=== PATIENT | female | born 1960 | race Caucasian/White ===

== ENCOUNTER 2017-04-26 01:39 | Inpatient (IN) | payer OTHER ==
[~2017-04-26] VITALS: Ht 160 cm; Wt 71.2 kg
[~2017-04-26 01:39] MED LIST: BYSTOLIC2.5 M1 PO; COLACE100 M1 PO; CRESTOR10 M1 PO; CYMBALTA20 M1 PO
--- NOTE | 2017-04-26 11:42 | Operative Report ---
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, myelopathy, OPLL Post-Operative Diagnosis: same Estimated Blood Loss: less than 50ml Surgeon/Pay Clerk: Evans LAY,Asif Avitia Anesthesia: general endotracheal tube Monitors: neurophysiologic monitoring IV Fluids: 1500cc Implants: depuy bengal cage,vectra plate Urine Output: 700cc Drains: med MAUREEN Specimens: C4/5, C5/6 disc material Complications: none Condition: stable Operative Indication: 57yo women with pain and parasthesias and high grade C5/6 stenosis from OPLL vs calcified disc with significant spinal cord compression and advanced DDD at C4/5 with right NFN and a failed course of conservative care now presents for operative decompression and instrumented fusion. Operative/Procedure Note Note: Patient was taking to the operating room. After appropriate difficult time out and patient identification, neurophysiologic monitoring leads were placed and baseline recordings were obtained. Patient underwent the smooth induction of general endotracheal anesthesia. A Nebwerry catheter was sterilely inserted. Patient was given 1 g of IV vancomycin preoperative prophylaxis. DVT prophylaxis was utilized throughout the case. With all tubes and lines secured, the patient was positioned supine on the operating table with a bump under the shoulders and the neck slightly extended on a donut. The shoulders were retracted downward with tape. Following positioning monitoring was stable. Left ventral neck was widely prepped and draped in the usual sterile fashion using povidone iodine solution. The C-arm fluoroscope was sterilely draped into the field and a linear transverse left anterior cervical incision was marked overlying the C5 vertebral body in a pre-existing neck fold and infiltrated with local anesthetic. Skin incision was made with a 10 blade knife. Dissection was carried down through the subcutaneous tissue with the Bovie to the platysma muscle which was elevated undermined and divided. Subplatysmal planes were created rostrally and caudally. The medial aspect of the sternocleidomastoid muscle was identified. The overlying fascia was incised and a combination of digital and blunt dissection was used down to the prevertebral fascia. Carotid artery pulse was palpated reflected laterally under hand-held retractor. The prevertebral fascia was incised and reflected with a peanut. Disc spaces were identified. A small gauge spinal needle was placed superficially in the presumed C4 5 disc and intraoperative lateral cervical x-ray was obtained and confirmed this to be the level of C4 5. With the correct levels verified, we marked the disc spaces of C4 5 and C5 6. On his coli muscles were reflected and self-retaining retractors were placed. Annulotomy's were made with a 15 blade knife and superficial discectomies performed with small straight and angled curettes and pituitary rongeurs. [place] pins were placed into the C4 and C6 vertebral bodies in the disc spaces are gently distracted. Further discectomy was then completed down to the posterior longitudinal ligament. At C5 6, there was heavy calcified disc or focal OPLL could be palpated beneath the C5 vertebral body. We elected to perform a corpectomy in order to get adequate decompression of the thecal sac. Using a combination of the bone scalpel and Leksell rongeur, C5 corpectomy was completed the bone was saved on the back table. There was significant focal OPLL behind the inferior half of the C5 vertebral body with severe impingement of the thecal sac. This was partially adherent to the dura. Working carefully, the calcified ligament was dissected free from the underlying dura with small angled curettes and resected in a piecemeal fashion using 2 mm Kerrison punch until all of the dural compression was relieved. We further undercut to the endplates of C4 and C6 and a combination of angled curettes and Kerrison rongeurs until an excellent and thorough decompression of the dural sac was achieved and it was nicely reexpanded throughout the corpectomy. The endplates of C4 and C6 were repaired F arthrodesis and all the cartilaginous endplates were removed. Monitoring was stable during the decompression. Meticulous hemostasis is achieved prior to arthrodesis. The wound was copiously irrigated with sterile normal saline. A 20 mm Depuy Bengal cage was selected and filled with morcellated autograft from the corpectomy. Cage was gently tamped into position between C4 and C6 and countersunk by approximately 1 mm and its position confirmed visually noted to be excellent. The [place] retractor was then released compressing the graft. [place] pins were removed. Bone bleeding was easily controlled with bone wax. We'll x-ray was obtained confirming excellent position of the cage. Proceeded with placement of the anterior instrumentation. A 26 mm Vectra titanium plate was selected and provisionally placed from C4 to C6 with a plate-holding pin and the plate position was confirmed fluoroscopically noted to be excellent. The plate was then affixed to the C4 and C6 vertebral bodies with a series of 4 16 mm screws. Each screw was placed by piercing the bone with an awl and placing a self drilling self-tapping screw. Final AP and lateral x-rays were obtained showed excellent position of the instrumentation. The screws were finally tightened applying the locking mechanism at all 4 locations. The wound was irrigated. We inspected the wound and meticulous hemostasis is achieved prior to closure. A medium MAUREEN drain was placed into the wound and secured to the skin with a 3-0 nylon suture. The skin was closed in layers. The platysma was closed with interrupted 3-0 Vicryl suture. The subcutaneous tissue was closed with interrupted 3-0 Vicryl suture and the skin was closed with a running 4-0 Vicryl subcuticular stitch. The was cleaned and dried. Steri-Strips and a sterile occlusive dressing was placed. The patient was placed in a soft cervical collar. She was awakened, extubated, and taken to PACU in stable condition. She was noted to be moving all 4 extremities at the completion the case. All sponge, needle, and instrument counts were correct at the completion of procedure 3. Neurophysiologic monitoring was stable throughout the case. Findings: Focal OPLL behind the C5 vertebral body associated with severe dural sac compression partially adherent to the underlying dura Discharge Disposition: PACU
--- NOTE | 2017-04-26 11:46 | Operative Report ---
Operative/Inv Procedure Report Surgery Date: 04/26/17 Name of Procedure: C5 corpectomy, C4 to 6 fusion , anterior instrumentation, placement of intervertebral biomechanical device, use autograft use of allograft use of fluoroscopic guidance Pre-Operative Diagnosis: Cervical spondylitic myelopathy Post-Operative Diagnosis: Same Estimated Blood Loss: less than 50ml Surgeon/Radiological Health Specialist: Asif Benitez md, Evans LAY,Mariela Cárdenas Anesthesia: general endotracheal tube Operative/Procedure Note Note: After the successful administration of general endotracheal anesthesia all lines tubes and monitors were placed by anesthesia team the patient was positioned supine with the head gently extended on shoulder rolls placed transversely across her shoulders we used the fluoroscope to plan the skin incision left anterior neck in a crease, over the C5 vertebral body. The patient was then prepped and draped in usual standard fashion #15 blade was used to incise the left anterior neck this was deepened to the platysma with Bovie cautery and sharp dissection was carried down medial to the carotid sheath lateral to the tracheo and the esophagus. Retracted the trachea and esophagus medially and over the longus coli bilaterally placed a bayoneted spinal needle in the C4 5 disc space to confirm level with the fluoroscope. We then entered the disc space with a #11 blade performed superficial discectomy using pituitary and curettes. We placed Alsen pins the bodies of C3 4 and C6 provided gentle in- line distraction we then deepened the discectomies down to the postanesthetic ridges we used the bone scalpel to make cuts laterally and the C5 vertebral body and used Leksell rongeurs to remove the superficial after dividing the bone was saved for morselized autograft. We then deepened the cuts with the bone scalpel and removed the remainder of the C5 vertebral body, it was teased off the dura with a upgoing curette and Kerrison punch were used to ream move the and Tate bone the remainder the disc space provide generous foraminotomies bilaterally. Motors and sensors were stable thought decompression, after satisfied with the bony ligament decompression we used calipers to trial the corpectomy size a 20 mm parallel cage was prepacked morselized autograft and tamped into place and fluoroscopic guidance. We secured in place a 26 mm plate with 16 mm screws. Motors and sensors were stable the plate was locked down the integrated locking mechanism. The wound was then irrigated through separate stab incision over 7 MAUREEN drain was left the mediolateral retractors were moved meticulous hemostasis obtained the Alsen pin holes waxed with bone wax and the wound was closed in layers using 2-0 Vicryl for the platysma and deep dermis and skin was closed with subcuticular 4.0. A dry sterile dressing was applied patient to recovery in stable condition. At the end the case all needle counts sponge and instruments were correct.
[2017-04-26 14:00] VITALS: BP 120/80
--- NOTE | 2017-04-26 16:22 | PN- Neurosurgical ---
Subjective Subjective: Patient reports incisional discomfort and states her pain is well controlled. She states she only want to take Tylenol for her pain. She reports voiding and ambulated to the bathroom without difficulty. She denies any numbness or tingling, chest pain, shortness of breath or trouble breathing. Objective Vital Signs and I&Os Vital Signs Date Time Temp Pulse Resp B/P B/P Pulse O2 O2 Flow FiO2 Mean Ox Delivery Rate 04/26 1400 97.8 98 20 120/80 95 Intake & Output 04/26 1600 04/26 0804/26 0000 04/25 1600 04/25 0804/25 0000 Intake Total Output Total 400 Balance -400 Output, Urine 400 Patient 157 lb 155 lb Weight Weight Standing Scale Measurement Method Physical Exam: Gen: Awake and alert in bed accompained by her family in NAD HEENT: Soft collar in place, anterior dressing c/d/i with no surrounding swelling, hematoma or drainage noted. MAUREEN with serosanguineous drainage noted. Cardiac: S1S2 noted Lungs: CTAB Abd: Soft, nondistended, nontender Ext: moves all extremities, sensation and motor intact, no edema or calf tenderness B/L Current Medications: Current Medications Sig/Bobby Start time Last Medication Dose Route Stop Time Status Admin Acetaminophen 650 MG Q4P PRN 04/26 1345 AC PO Acetaminophen 1,000 MG .STK-MED ONE 04/26 08 DC IV 04/26 08 Atorvastatin Calcium 40 MG 1700 04/26 1700 AC PO Diazepam 5 MG Q8P PRN 04/26 1400 AC PO Docusate Sodium 100 MG TID 04/26 1600 AC PO Duloxetine HCl 20 MG DAILY 04/27 1000 AC PO Fentanyl Citrate 250 MCG .STK-MED ONE 04/26 0804 DC IM 04/26 08 Heparin Sodium 5,000 UNIT Q8 04/27 0600 AC (Porcine) SC Hydromorphone HCl 2 MG Q4-6 PRN PRN 04/26 1515 AC PO Midazolam HCl 2 MG .STK-MED ONE 04/26 08 DC IM 04/26 08 Nebivolol 2.5 MG DAILY 04/27 1000 AC PO Ondansetron HCl 4 MG Q6P PRN 04/26 1400 AC IV Prochlorperazine 5 MG Q6P PRN 04/26 1630 AC PO Remifentanil HCl 6 MG .STK-MED ONE 04/26 0805 DC IV 04/26 0806 Senna 374 MG QPM PRN 04/26 1345 AC PO Sodium Chloride 1,000 ML Q12H 04/26 1345 AC IV 04/27 1344 Vancomycin HCl 1,000 MG Q12H 04/26 2030 AC Dextrose/Water 250 ML IV 04/26 2129 Vancomycin HCl 1,000 MG Q12H 04/26 0000 NR Sodium Chloride 250 ML IV 04/26 2359 Results Last 48 Hours of Labs: Laboratory Tests 04/26 0715 Urines Urine Test NEGATIVE Assessment/Plan Assessment/Plan 57 F POD 0 s/p ACDF of C4-5, C5-6 with corpectomy of C5 and MAUREEN drain x1 secondary to C4-5, C5-6 stenosis, myelopathy, OPLL Advance diet as tolerated Cont IVF Cont postop abx - vanco x2 Cont pain regimen - oral tylenol and dilaudid MAUREEN to bulb suction Keep soft collar in place Home meds on board Encourage IS, ambulation DVT ppx tomorrow am, alps in place Core Measures Venous Thromboembolism VTE Risk Factors Surgery No Mechanical VTE Prophylaxis d/t N/A MechProphylax Ordered No VTE Pharm Prophylaxis d/t NA PharmProphylax ordered
[2017-04-26 18:00] VITALS: BP 128/80
[2017-04-26 22:00] VITALS: BP 120/70
[2017-04-27 02:00] VITALS: BP 130/72
[2017-04-27 06:15] VITALS: BP 134/76
--- NOTE | 2017-04-27 07:24 | PN- Neurosurgical ---
Subjective Subjective: Pt doing well. Was OOB, koko some po, voiding on own. pain minimal. mild nausea after zofran this am. Objective Vital Signs and I&Os Vital Signs Date Time Temp Pulse Resp B/P B/P Pulse O2 O2 Flow FiO2 Mean Ox Delivery Rate 04/27 0615 97.8 80 20 134/76 96 Room Air 04/27 0200 97.9 75 18 130/72 96 Room Air 04/26 2200 97.8 86 20 120/70 96 Room Air 04/26 1800 98.0 90 20 128/80 96 Room Air 04/26 1400 97.8 98 20 120/80 95 Intake & Output 04/27 0800 04/27 0000 04/26 1600 04/26 0800 04/26 0000 04/25 1600 Intake Total 800 780 Output Total 410 40 400 Balance 390 740 -400 Intake, IV 560 640 Intake, Oral 240 140 Output, 10 40 Drainage Output, Urine 400 400 Patient 71.214 kg 70.307 kg Weight Weight Standing Scale Measurement Method Physical Exam: Af, VSS awake and alert voice clear, no hoarseness swallow intact incision is c,d,i flat normal motor and sensory bilat UE, LE ambulating voiding on own HV with 10cc last shift serosanguinous Current Medications: Current Medications Sig/Bobby Start time Last Medication Dose Route Stop Time Status Admin Acetaminophen 1,000 MG Q6P PRN 04/26 1715 AC 04/27 N/A 1 UNIT IV 0532 Acetaminophen 650 MG Q4P PRN 04/26 1345 AC PO Acetaminophen 1,000 MG .STK-MED ONE 04/26 08 DC IV 04/26 0806 Atorvastatin Calcium 40 MG 1700 04/26 1700 AC PO Diazepam 5 MG Q8P PRN 04/26 1400 AC PO Docusate Sodium 100 MG TID 04/26 1600 AC PO Duloxetine HCl 20 MG DAILY 04/27 1000 AC PO Fentanyl Citrate 250 MCG .STK-MED ONE 04/26 0804 DC IM 04/26 0805 Heparin Sodium 5,000 UNIT Q8 04/27 0600 AC (Porcine) SC Hydromorphone HCl 2 MG Q4-6 PRN PRN 04/26 1515 AC PO Hydromorphone HCl 2 MG .STK-MED ONE 04/26 1215 DC IM 04/26 1216 Midazolam HCl 2 MG .STK-MED ONE 04/26 0805 DC IM 04/26 0806 Nebivolol 2.5 MG DAILY 04/27 1000 AC PO Ondansetron HCl 4 MG Q6P PRN 04/26 1400 AC 04/27 IV 0530 Prochlorperazine 10 MG Q6-PRN PRN 04/26 1715 AC IV Prochlorperazine 5 MG Q6P PRN 04/26 1630 DC PO Remifentanil HCl 6 MG .STK-MED ONE 04/26 0805 DC IV 04/26 0806 Senna 374 MG QPM PRN 04/26 1345 AC PO Sodium Chloride 1,000 ML Q12H 04/26 1345 AC 04/27 IV 04/27 1344 0357 Vancomycin HCl 1,000 MG Q12H 04/26 2030 DC 04/26 Dextrose/Water 250 ML IV 04/26 2129 2059 Vancomycin HCl 1,000 MG Q12H 04/26 0000 DC Sodium Chloride 250 ML IV 04/26 2359 Results Last 48 Hours of Labs: Laboratory Tests 04/26 0715 Urines Urine Test NEGATIVE Assessment/Plan Assessment/Plan Pt POD1 s/p C5 corpectomy, C4/5, C5/6 discectomies with C4-6 anterior fusion and doing well. Plan: -OOB this am, breakfast -if drain output remain min next several hours, ok to dc. 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
--- NOTE | 2017-04-27 09:07 | RADIOLOGY REPORT ---
EXAMINATION: XR CERVICAL SPINE CLINICAL INFORMATION: ACD fusion C4-C5 and C5-C6. COMPARISON: CT cervical spine 03/30/2017. TECHNIQUE: 3 intraoperative films are submitted for interpretation in the lateral position. 0.3 minutes of fluoroscopy time was utilized. FINDINGS: Initial film demonstrates no intervention. There is disc space narrowing at C4-C5 and C5-C6. The 2 additional films demonstrate fusion from C4 through C6 with disc spacers at these levels. IMPRESSION: Intraoperative films demonstrate mechanical fusion from C4 through C6.
[2017-04-27 10:00] VITALS: BP 120/80
[2017-04-27] MEDS ORDERED: ACETAMINOPHEN500 M4 PO (14:03)
--- NOTE | 2017-04-27 14:07 | Patient Discharge Instructions ---
Discharge Instructions General Discharge Information You were seen/treated for: Neck pain You had these procedures: acdf c4-5, c5-6 Watch for these problems: Increasing pain depsite the use of pain medication Increasing redness, warmth or swelling Drainage of any type from incision Inability to swallow, difficulty breathing, difficulty speaking Persistent nausea or vomitting Fever greater than 101.5 degrees Do not soak the wound: Yes No bath, but you may shower: Yes Other wound care: Keep wound clean and dry. Protect while in shower. If wet, dry immediately with clean towel. Collar at all times as indicated by Dr. Krueger Diet Continue normal diet: Yes Recommended Diet: Regular Activity Full Activity/No Limits: No Activity Self Limited: Yes Pounds, do NOT lift more than: 5 Activity Limited to: Weight bear as tolerated Other activity limits: Collar at all times unless otherwise indicated by Dr. Krueger Acute Coronary Syndrome Inclusion Criteria At DC or during hospital stay patient has or had the following: ACS DIAGNOSIS No Discharge Core Measures Meds if any: Prescribed or Continued at Discharge Meds if any: NOT Prescribed or Continued at Discharge Congestive Heart Failure Inclusion Criteria At DC or during hospital stay patient has or had the following: CHF DIAGNOSIS No Discharge Core Measures Meds if any: Prescribed or Continued at Discharge Meds if any: NOT Prescribed or Continued at Discharge Cerebrovascular accident Inclusion Criteria At DC or during hospital stay patient has or had the following: CVA/TIA Diagnosis No Discharge Core Measures Meds if any: Prescribed or Continued at Discharge Meds if any: NOT Prescribed or Continued at Discharge Venous thromboembolism Inclusion Criteria VTE Diagnosis No VTE Type NONE VTE Confirmed by (Test) NONE Discharge Core Measures - Per Current guidelines, there needs to be overlap - treatment for the first 5 days of Warfarin therapy. - If discharged on Warfarin prior to 5 days of - overlap therapy, the patient will need to be - assessed for post discharge needs including - *Post discharge parental anticoagulation - *Warfarin and/or parental anticoagulation education - *Follow up date to check INR post discharge At least 5 days overlap therapy as Inpatient No Meds if any: Prescribed or Continued at Discharge Note: Overlap Therapy is Warfarin and Anticoagulant Meds if any: NOT Prescribed or Continued at Discharge
--- NOTE | 2017-04-27 14:12 | Surgical Discharge Summary ---
Visit Information Visit Dates Admission Date: 04/26/17 History of Present Illness Chief Complaint: Neck pain Medical History Blood Transfusion Hx: No Cardiovascular: DISRYTHMIAS History of MRSA: No History of VRE: No History of CDIFF: No Isolation History: Standard Influenza Vaccine: 02/23/17 Surgical History Pertinent Surgical History: tubal ligation, RECTAL FISTULA Psychosocial History Where Do You Live? Home Who Do You Live With? Spouse What is Your Primary Language? Mohawk Review of Systems: See H&P Hospital Course Course Attending Physician: Evans LAY,Mariela Cárdenas Primary Care Physician: Jeannie Joseph MD Hospital Course: Nayely was admitted to the hospital for an elective acdf c4-6. She tolerated the procedure well and was transferred to a general surgical post op floor. There her diet was advanced and tolerated. She displayed no neurological deficits and was able to speak and swallow without difficulty. Her everette hallman drain was discontinued on the first post operative day. At the time of her hospital discharge, her vital signs were stable and within normal limits, her pain was under control and her neurovascular status was intact. She was deemed appropriate for discharge. Allergies: Coded Allergies: NSAIDS (Non-Steroidal Anti-Inflamma (IBS 04/25/17) meperidine (From DEMEROL) (ANXIOUS 04/25/17) morphine (ANAPHYLAXIS 04/25/17) omeprazole (PAIN 04/25/17) penicillin G (UNKNOWN 04/25/17) Disposition Summary Disposition Principal Diagnosis: Cervical spinal stenosis Additional Diagnosis: None Discharge Disposition: home or self care Discharge Instructions General Discharge Information Code Status: Full Code Patient's Diet: Regular, advance as tolerated Patient's Activity: WBAT, no lifting greater than 5 lbs, collar at all times Follow-Up Instructions/Appts: Follow up with Dr. Krueger in 1-2 weeks from date of surgery Medications at Discharge Discharge Medications: Continue taking these medications: Docusate Sodium (Colace) 100 MG CAPSULE 200 Milligram ORAL DAILY Nebivolol HCl (Bystolic) 2.5 MG TABLET 1 Tablet ORAL DAILY Duloxetine Hydrochloride (Cymbalta) 20 MG CAPSULE. 1 Tablet ORAL DAILY Rosuvastatin Calcium (Crestor) 10 MG TABLET 1 Tablet ORAL DAILY Start taking the following new medications: Acetaminophen (Acetaminophen) 500 MG TABLET 1 Tablet ORAL EVERY 4-6 HOURS as needed for pain Qty = 60 No Refills
[2017-04-27 14:50] VITALS: BP 120/80
== END 2017-04-27 15:00 | DRG 472 ==
LOC: STS 01:39 → 2NA 11:55 → PACUH 11:55 → ENRESERV 13:06 → ENTRNSPT 13:28 → EDTRNSPTSTS 13:33 → 2NA 13:42 → CMPTRNSPT 13:45 → ENPENDDIS 04-27 14:18 → 2NA 04-27 15:00
PROC: 0RG20A0 Fusion of 2 or more Cervical Vertebral Joints with Interbody Fusion Device, Anterior Approach, Anterior Column, Open Approach (ICD-10-PCS; principal; 2017-04-26)
PROC: 0RB30ZZ Excision of Cervical Vertebral Disc, Open Approach (ICD-10-PCS; 2017-04-26)
PROC: 4A11X4G Monitoring of Peripheral Nervous Electrical Activity, Intraoperative, External Approach (ICD-10-PCS; 2017-04-26)
DX: M48.02 Spinal stenosis, cervical region (principal); M47.12 Other spondylosis with myelopathy, cervical region; I49.9 Cardiac arrhythmia, unspecified
CPT/HCPCS: 2NASP; 36415; 72040; 81025; 88304; C1713; C9399; J0131; J0780; J1644; J2405; J3370; J7040; J7060